=== PATIENT | female | born 1965 | race Caucasian/White ===

== ENCOUNTER → 2017-01-25 | Outpatient (CLI) | payer OTHER ==
[~2017-01-25] MED LIST: DEMEROL; EFFEXOR50 MG PO; MIRALAX POWDER17 G1 PO; NEURONTIN100 MG PO; NEURONTIN600 MG PO; PERCOCET 325 MG1 TAB; PHENERGAN12.5 M1 PO; XANAX; ZOFRAN4 MG PO; ZYPREXA; [UNRECOGNIZED DRUG - OTHER]
== END | disposition home or self-care (01) ==
LOC: RAD 16:42
DX: M47.896 Other spondylosis, lumbar region (principal); M54.5 Low back pain

== ENCOUNTER → 2017-03-03 | Outpatient (CLI) | payer OTHER | END | disposition home or self-care (01) | LOC: MAMMO 02-11 12:00 | DX: Z12.31 Encounter for screening mammogram for malignant neoplasm of breast (principal) ==

== ENCOUNTER → 2017-03-30 | Outpatient (CLI) | payer OTHER | END | disposition home or self-care (01) | LOC: MAMMO 10:43 | DX: N63 Unspecified lump in breast (principal); R92.8 Other abnormal and inconclusive findings on diagnostic imaging of breast ==

== ENCOUNTER 2017-11-22 12:50 | Inpatient (IN) | payer OTHER ==
[~2017-11-22] VITALS: Ht 172.7 cm; Wt 63.5 kg
--- NOTE | ~2017-11-22 | O ---
[place], [place] OPERATIVE NOTE NAME: MAMI HAZEL UNIT #: [id number] ROOM: 503 DOCTOR: SHAREE HALLJENN BIRTHDATE: [birth year] DOS: 11/23/2017 GASTROENDOSCOPIC REPORT INDICATIONS: This is a 52-year-old patient, who presented with a chief complaint of 3 days of abdominal pain, expressing as well nausea and vomiting. She was admitted for further reassessment with the surgical consult on board also. The patient's white blood cells were 13.6, H and H of 14 and 42, and lactic acid was 1.0. Her INR was 1.1. Her comprehensive metabolic panel, electrolyte balance, C-reactive protein 0.7. CT scan of the abdomen and pelvis reviewed, probable mild colitis was suspected. White blood cells remained today at 10.9, improvement. Basic metabolic panel, GFR was reassessed, which is not distressed. Hemoglobin A1c 5.4. PAST MEDICAL HISTORY: History of migraine, back pain, and anxiety. PAST SURGICAL HISTORY: Hysterectomy and tubal ligation. SOCIAL HISTORY: Alcohol and tobacco positive. ALLERGIES: MORPHINE. FAMILY HISTORY: Noncontributory. MEDICATIONS: List has been reviewed including Effexor, oxycodone, Xanax, and Imitrex. PROCEDURE: Today's procedure part of investigation is panendoscopy and colonoscopy. PREMEDICATION: Versed and Diprivan. SCOPE: Olympus forward-viewing gastroscope Q10 video. REPORT: After putting the patient in left lateral position and application of lubricant to the scope, scope was introduced; thereafter, under direct visualization advanced through the length of esophagus without difficulty. Esophagus; cervical, thoracic, and distal within normal limits. Gastric pouch was entered. A small hiatal hernia was noticed. Mild gastritis appreciated. Antral biopsy obtained. Duodenal bulb, mild duodenitis seen. Second and third part patent. Antral biopsy obtained. GI reflexion of the scope reveals cardia to be benign. Air was suctioned out. The patient was extubated and tolerated the procedure well. IMPRESSION: Small hiatal hernia, gastritis. PLAN AND DISCUSSION: Protonix 40 mg daily would suffice. Furthermore, we are going to proceed with colonoscopic assessment. [place], [place] OPERATIVE NOTE NAME: MAMI HAZEL UNIT #: [id number] ROOM: [facility] DOCTOR: JENN TOLLIVER MD BIRTHDATE: [birth year] JENN TOLLIVER MD CM:OPRECORD:OPERATIVE NOTE [id number] JENN TOLLIVER MD 11/23/17 1314 interface
--- NOTE | ~2017-11-22 | O ---
[place], [place] OPERATIVE NOTE NAME: MAMI HAZEL UNIT #: [id number] ROOM: 503 DOCTOR: JENN TOLLIVER MD BIRTHDATE: [birth year] DOS: 11/23/2017 GASTROENDOSCOPIC REPORT INDICATIONS: This is a 52-year-old patient, who presented with ambiguous abdominal pain. The patient's radiologic studies show probable mild colitis from rectum to transverse colon. PROCEDURE: Today's procedure part of investigation is colonoscopy. PREMEDICATION: Versed and Diprivan. SCOPE: Olympus forward-viewing colonoscope 10L video. REPORT: After putting the patient in left lateral position and application of lubricant to rectal pouch and digital examination, the scope was introduced; thereafter, under direct visualization, advanced through the length of colon without difficulty. Difficulty only being tortuosity of colon. Mucosa and vascularity carefully examined. There is no distortion of mucosa. There is no evidence of colitis. There is no evidence of ischemia. Scope was gradually withdrawn from the right colon to transverse to descending colon. The patient was extubated and tolerated the procedure well. IMPRESSION: Tortuous colon, otherwise no evidence of colitis. PLAN AND DISCUSSION: We are going to feed and observe her. We are going to continue with Flagyl while she is inpatient and clinical reassessment. JENN TOLLIVER MD CM:OPRECORD:OPERATIVE NOTE [id number] JENN TOLLIVER MD 11/23/17 1317 interface
[~2017-11-22 12:50] MED LIST changes: +EFFEXOR-XR150 MG PO; -EFFEXOR50 MG PO
[2017-11-22 13:25] VITALS: BP 142/90
[2017-11-22 14:28] LABS: BASO % 0.3 % (0.0-1.0); EOS # 0.1 10*3/uL (0.0-0.4); EOS % 0.4 % (1.0-4.0); HEMATOCRIT 42.9 % (37.0-47.0); HEMOGLOBIN 14.7 g/dl (12.0-16.0); LYMPH # 2.3 10*3/uL (1.3-4.4); LYMPH % 16.8 % (27.0-41.0); MEAN CELL VOLUME 91.1 fl (81.0-99.0); MEAN CORPUSCULAR HGB 31.2 pg (27.0-31.0); MEAN CORPUSCULAR HGB CONC 34.3 g/dl (33.0-37.0); MEAN PLATELET VOLUME 10.4 fl (9.6-12.3); MONO # 0.7 10*3/uL (0.1-1.0); MONO % 4.8 % (3.0-9.0); NEUT # 10.6 10*3/uL (2.3-7.9); NEUT % 77.4 % (47.0-73.0); PLATELET COUNT AUTOMATED 327 10*3/uL (130-400); RED BLOOD COUNT 4.71 10*6/uL (4.10-5.10); RED CELL DISTRI WIDTH 12.4 % (0-14.5); WHITE BLOOD COUNT 13.6 10*3/uL (4.8-10.8)
[2017-11-22 14:36] LABS: ACT PARTIAL THROMBO TIME 24.3 SECONDS (20.8-31.5); INTERNATIONAL NORM RATIO 1.1 (2.0-3.5)
[2017-11-22 14:42] LABS: ALBUMIN 3.9 gm/dl (3.1-4.5); ALKALINE PHOSPHATASE 101 U/L (45-117); BUN 6 mg/dl (7-24); CHLORIDE 105 mmol/L (98-107); CREATININE 0.72 mg/dL (0.55-1.02); LIPASE 240 U/L (73-393); SGOT/AST 12 IU/L (3-35); SGPT/ALT 20 U/L (12-78); SODIUM 142 mmol/L (136-145)
[2017-11-22 15:02] LABS: BILIRUBIN NEGATIVE (NEGATIVE); BLOOD NEGATIVE (NEGATIVE); CLARITY CLEAR (CLEAR); COLOR YELLOW (YELLOW); GLUCOSE NEGATIVE (NEGATIVE); KETONE NEGATIVE (NEGATIVE); LEUKO ESTERASE NEGATIVE (NEGATIVE); NITRITE NEGATIVE (NEGATIVE); PH 5.5 (5.0-9.0); SPECIFIC GRAVITY <= 1.005 (1.005-1.030); UROBILINOGEN 0.2 E.U./dl (0.2-1.0)
[2017-11-22 15:17] LABS: BACTERIA TRACE; WBC 0-2 wbc/hpf (0-5)
[2017-11-22 16:00] VITALS: BP 144/65
[2017-11-22] MEDS ORDERED: OXYCODONE HCL20 M1 PO (18:19)
[2017-11-22] MEDS ORDERED: XANAX1 MG PO (18:20)
[2017-11-22] MEDS ORDERED: ZYRTEC10 MG PO (18:21)
[2017-11-22] MEDS ORDERED: IMITREX100 MG PO (18:24)
[2017-11-22 20:00] VITALS: BP 123/66
[2017-11-23] VITALS (7 sets, daily range): BP systolic 99–135; BP diastolic 56–86
[2017-11-23 06:39] LABS: BASO % 0.4 % (0.0-1.0); EOS # 0.1 10*3/uL (0.0-0.4); EOS % 1.1 % (1.0-4.0); LYMPH # 2.5 10*3/uL (1.3-4.4); LYMPH % 22.5 % (27.0-41.0); MEAN CELL VOLUME 92.8 fl (81.0-99.0); MEAN CORPUSCULAR HGB 31.9 pg (27.0-31.0); MEAN CORPUSCULAR HGB CONC 34.4 g/dl (33.0-37.0); MEAN PLATELET VOLUME 10.6 fl (9.6-12.3); MONO # 0.7 10*3/uL (0.1-1.0); MONO % 6.3 % (3.0-9.0); NEUT # 7.6 10*3/uL (2.3-7.9); NEUT % 69.4 % (47.0-73.0); PLATELET COUNT AUTOMATED 263 10*3/uL (130-400); RED BLOOD COUNT 3.73 10*6/uL (4.10-5.10); RED CELL DISTRI WIDTH 12.4 % (0-14.5); WHITE BLOOD COUNT 10.9 10*3/uL (4.8-10.8)
[2017-11-23 06:43] LABS: HEMATOCRIT 34.6 % (37.0-47.0); HEMOGLOBIN 11.9 g/dl (12.0-16.0)
[2017-11-23 06:48] LABS: BUN 5 mg/dl (7-24); CHLORIDE 110 mmol/L (98-107); CHOLESTEROL 200 mg/dL (<200); CREATININE 0.69 mg/dL (0.55-1.02); HDL CHOLESTEROL 47 mg/dl (40-60); LDL CHOLESTEROL 138 mg/dL (9-159); PHOSPHOROUS 3.3 mg/dL (2.5-4.9); POTASSIUM 3.4 mmol/L (3.5-5.1); SODIUM 143 mmol/L (136-145); TRIGLYCERIDES 73 mg/dl (<150); VLDL CHOLESTEROL 15 mg/dL (6-40)
[2017-11-23 07:01] LABS: ACT PARTIAL THROMBO TIME 26.1 SECONDS (20.8-31.5); INTERNATIONAL NORM RATIO 1.1 (2.0-3.5)
== END 2017-11-23 16:25 | disposition home or self-care (01) | DRG 393 ==
LOC: ED 12:50 → EDHOLD 17:08 → 5E 17:08
PROVIDERS: Family Medicine; Nurse Practitioner Family
PROC: 0DJD8ZZ Inspection of Lower Intestinal Tract, Via Natural or Artificial Opening Endoscopic (ICD-10-PCS; principal; 2017-11-23)
PROC: 0DB78ZX Excision of Stomach, Pylorus, Via Natural or Artificial Opening Endoscopic, Diagnostic (ICD-10-PCS; 2017-11-23)
DX: K35.80 Unspecified acute appendicitis (principal); K56.2 Volvulus; K29.00 Acute gastritis without bleeding; M54.9 Dorsalgia, unspecified; G89.29 Other chronic pain; R79.82 Elevated C-reactive protein (CRP); F17.210 Nicotine dependence, cigarettes, uncomplicated; E87.6 Hypokalemia; K59.09 Other constipation; G43.909 Migraine, unspecified, not intractable, without status migrainosus; F41.9 Anxiety disorder, unspecified; K44.9 Diaphragmatic hernia without obstruction or gangrene; Z71.6 Tobacco abuse counseling; Z90.710 Acquired absence of both cervix and uterus; Z98.51 Tubal ligation status; Z78.9 Other specified health status; Z86.73 Personal history of transient ischemic attack (TIA), and cerebral infarction without residual deficits; Z80.8 Family history of malignant neoplasm of other organs or systems; Z88.6 Allergy status to analgesic agent; Z79.899 Other long term (current) drug therapy

== ENCOUNTER → 2019-02-06 | Outpatient (CLI) | payer OTHER ==
[~2019-02-06] MED LIST changes: +IMITREX100 MG PO; +OXYCODONE HCL20 M1 PO; +XANAX1 MG PO; +ZYRTEC10 MG PO
== END | disposition home or self-care (01) ==
LOC: RAD 08:42
DX: M54.9 Dorsalgia, unspecified (principal); M41.20 Other idiopathic scoliosis, site unspecified

== ENCOUNTER 2021-11-19 12:11 | Emergency (ER) | payer MEDICAID ==
[2021-11-19 15:52] LABS: BASO % 0.3 % (0.0-1.0); EOS % 0.1 % (1.0-4.0); HEMATOCRIT 36.6 % (37.0-47.0); LYMPH # 0.9 10*3/uL (1.3-4.4); LYMPH % 9.4 % (27.0-41.0); MEAN CELL VOLUME 91.5 fl (81.0-99.0); MEAN CORPUSCULAR HGB 31.5 pg (27.0-31.0); MEAN CORPUSCULAR HGB CONC 34.4 g/dl (33.0-37.0); MEAN PLATELET VOLUME 9.5 fl (9.6-12.3); MONO # 0.3 10*3/uL (0.1-1.0); MONO % 3.3 % (3.0-9.0); NEUT # 8.6 10*3/uL (2.3-7.9); NEUT % 86.6 % (47.0-73.0); PLATELET COUNT AUTOMATED 351 10*3/uL (130-400)
[2021-11-19 16:01] LABS: BILIRUBIN Negative (Negative); BLOOD Negative (Negative); CLARITY Clear (Clear); COLOR Yellow (Yellow); GLUCOSE Negative (Negative); KETONE 2+ (Negative); LEUKO ESTERASE Trace (Negative); NITRITE Negative (Negative); SPECIFIC GRAVITY 1.015 (1.001-1.030); UROBILINOGEN 0.2 E.U./dl (0.0-1.0)
[2021-11-19 16:04] LABS: ACT PARTIAL THROMBO TIME 29.9 SECONDS (20.0-32.1); INTERNATIONAL NORM RATIO 1.1 (2.0-3.5)
[2021-11-19 16:08] LABS: POTASSIUM 3.4 mmol/L (3.5-5.1); SODIUM 141 mmol/L (136-145); TOTAL PROTEIN 8.1 gm/dL (6.4-8.2)
[2021-11-19 16:11] LABS: BACTERIA TRACE; RBC 0-2 rbc/hpf (0-2); WBC 0-2 wbc/hpf (0-5)
[2021-11-19 16:12] LABS: URINE AMPHETAMINES > 1000 (1000ng/ml); URINE BARBITURATES < 200 (200ng/ml); URINE BENZODIAZEPINES > 200 (200ng/ml); URINE CANNABINOIDS (THC) < 50 (50ng/ml); URINE COCAINE < 300 (300ng/ml); URINE METHADONE < 300 (300ng/ml); URINE OPIATES < 300 (300ng/ml)
[2021-11-19 16:13] LABS: URINE PHENCYCLIDINE < 25 (25ng/ml)
[2021-11-19 16:18] LABS: ALBUMIN 4.4 gm/dl (3.1-4.5); ALKALINE PHOSPHATASE 101 U/L (45-117); BUN 18 mg/dl (7-24); CHLORIDE 107 mmol/L (98-107); CPK 585 U/L (26-192); CREATININE 0.72 mg/dL (0.55-1.02); SGOT/AST 31 IU/L (3-35); SGPT/ALT 30 U/L (12-78)
[2021-11-19 16:19] LABS: ACETAMINOPHEN (TYLENOL) < 5.0 ug/ml (10-30); ETHYL ALCOHOL < 3.0 mg/dl (<3)
== END 2021-11-20 17:00 | disposition home or self-care (01) ==
LOC: ED 12:11
PROVIDERS: Emergency Medicine
DX: R74.8 Abnormal levels of other serum enzymes (principal); R79.82 Elevated C-reactive protein (CRP); F15.10 Other stimulant abuse, uncomplicated; Z88.8 Allergy status to other drugs, medicaments and biological substances; Z79.899 Other long term (current) drug therapy; Z98.51 Tubal ligation status; Z90.710 Acquired absence of both cervix and uterus; Z98.890 Other specified postprocedural states; Z87.891 Personal history of nicotine dependence